=== PATIENT | female | born 1960 | race Caucasian/White ===

== ENCOUNTER 2018-09-09 22:25 | Emergency (ER) | payer OTHER ==
[~2018-09-09] VITALS: Ht 165.1 cm; Wt 75.7 kg
[2018-09-09 22:28] VITALS: BP 156/97
--- NOTE | 2018-09-09 22:35 | NUR ---
PT PROVIDING URINE. AMBULATED TO BED 12 WITH VSS.
--- NOTE | 2018-09-09 22:37 | NUR ---
PT TAKEN TO BED 12
--- NOTE | 2018-09-09 23:16 | NUR ---
EVALUATING AT BEDSIDE.
[2018-09-09] MEDS ORDERED: ONDANSETRON 4 MG ODT PO ONE (23:20)
--- NOTE | 2018-09-09 23:44 | NUR ---
PT REFUSED ZOFRAN ODT. DR. MENG MADE AWARE. EKG DONE AT BEDSIDE.
[2018-09-10 00:04] VITALS: BP 126/66
== END 2018-09-10 00:01 | disposition home or self-care (01) ==
LOC: MED 22:25
DX: R11.2 Nausea with vomiting, unspecified (principal); E07.9 Disorder of thyroid, unspecified; Z88.6 Allergy status to analgesic agent; Z90.49 Acquired absence of other specified parts of digestive tract
CPT/HCPCS: 81002; 81025; 93005; 99283; Q0162